=== PATIENT | female | born 1975 | race Caucasian/White ===

== ENCOUNTER → 2024-07-25 | Day surgery (SDC) | payer BC ==
[~2024-07-25] MED LIST: LEVOTHYROXINE112 MCG PO; LIDOCAINE HCL 2% LOCAL INJ 5 ML SDV VIAL INJ ONE; PROPOFOL IV EMULSION 10 MG/ML 20 ML VIAL ONE; PROPOFOL IV EMULSION 50 ML IV ONE
[2024-07-25] MEDS: LACTATED RINGER'S 1,000 ML ONE (07:57)
[2024-07-25 10:49] VITALS: TEMP 97.1
[2024-07-25 11:10] VITALS: BP 100/64; PULSE 61; RESP 18; O2SAT 100
== END | disposition home or self-care (01) ==
LOC: OR 07:25
PROVIDERS: ATTEND Internal Medicine Gastroenterology
DX: Z12.11 Encounter for screening for malignant neoplasm of colon (principal); K62.1 Rectal polyp; E78.5 Hyperlipidemia, unspecified; E03.9 Hypothyroidism, unspecified; Z79.899 Other long term (current) drug therapy; Z68.28 Body mass index [BMI] 28.0-28.9, adult
CPT/HCPCS: 45384; 81025; 88305; J2003; J2704 ×2; J7121; 45378; 45380